=== PATIENT | male | born 1975 | race Caucasian/White ===

== ENCOUNTER 2023-06-12 17:54 | Emergency (ER) | payer MEDICAID ==
[2023-06-12] MEDS ORDERED: Ibuprofen 800 MG Tab PO ONE (18:26)
[2023-06-12] MEDS ORDERED: Azithromycin 500 MG Tab PO ONE (18:26)
[2023-06-12 18:53] LABS: INFLUENZA A NAA NEGATIVE (NEGATIVE); INFLUENZA B NAA NEGATIVE (NEGATIVE)
[2023-06-12 18:55] LABS: CORONAVIRUS COVID-19 NAA NEGATIVE (NEGATIVE)
== END 2023-06-12 19:37 | disposition home or self-care (01) ==
LOC: FB.ED 17:54
DX: J02.8 Acute pharyngitis due to other specified organisms (principal); H66.90 Otitis media, unspecified, unspecified ear
CPT/HCPCS: 0240U; 87651-QW; 99283; 99284; A9270-GY